=== PATIENT | female | born 1975 | race Caucasian/White ===

== ENCOUNTER → 2016-08-22 | Day surgery (SDC) | payer OTHER ==
[~2016-08-22] VITALS: Ht 162.6 cm; Wt 74.2 kg
[~2016-08-22] MED LIST: *ONDANSETRON 4 MG VIAL PERIprocedural Use ONLY ONE; *PROMETHAZINE 25 MG/ML VIAL PERIprocedural use ONLY ONE; ACETAMINOPHEN 1000 MG/100 ML VIAL IV ONE; ACETAMINOPHEN/HYDROcodone 325 MG/5 MG TAB PO PRN; AMPICILLIN/SULBAC 3 GM/NS 100 ML IV SCH; FAMOTIDINE 20 MG/2 ML VIAL ONE; INSULIN HUMAN REGULAR 1,000 UNITS/10 ML VIAL SQ PRN; LACTATED RINGER'S 1,000 ML BAG IV ONE; LACTATED RINGER'S 1000 ML INJ 1,000 ML IV SCH; LACTATED RINGER'S 1000 ML IV SCH; LIDOCAINE 1%/EPINEPHrine 1:100,000 SOLN 20 ML VIAL ONE; METOPROLOL TARTRATE 25 MG TAB PO PRN; MIDAZOLAM HCL 2 MG/2 ML VIAL ONE; ONDANSETRON HCL 4 MG/2 ML VIAL IV PUSH ONE; OXYMETAZOLINE HCL 0.05% 15 ML NASAL SPRAY ONE; PHENYLEPH/NS 1000 MCG/10 ML SYR IV ONE; PROPOFOL 200 MG/20 ML AMP IV ONE; SODIUM CHLORID 0.9% 500 ML IV SCH; fentaNYL CITRATE 250 MCG/5 ML AMP ONE
[2016-08-22 06:45] VITALS: BP 120/71; PULSE 75; RESP 20; TEMP 97.9; O2SAT 98
[2016-08-22] MEDS: BACITRACIN TOP OINT 15 GM TUBE ONE ×2 (07:47→09:40)
[2016-08-22 11:30] VITALS: BP 121/64; PULSE 68; RESP 20; TEMP 97.7; O2SAT 97
--- NOTE | 2016-08-28 10:24 | MP ---
cc: RUPINDER RAMIREZ M.D. DATE OF SURGERY: 08/22/[address] Rupinder Ramirez PREOPERATIVE DIAGNOSIS 1. Chronic pansinusitis. 2. Nasal airway obstruction. 3. Nasal septal deviation. 4. Hypertrophy of inferior turbinates. POSTOPERATIVE DIAGNOSIS 1. Chronic pansinusitis. 2. Nasal airway obstruction. 3. Nasal septal deviation. 4. Hypertrophy of inferior turbinates. OPERATION PERFORMED 1. Open repair nasal septal fracture. 2. Bilateral submucosal resection of inferior turbinates. 3. Bilateral endoscopic total ethmoidectomy. 4. Bilateral endoscopic maxillary antrostomy with removal of maxillary sinus tissue. 5. Bilateral endoscopic exploration of frontal sinus ducts with balloon sinuplasty. 6. Bilateral endoscopic sphenoidotomy with removal of sphenoid sinus tissue. INDICATIONS The indications are documented in the history and physical. OPERATIVE FINDINGS There was severe leftward deviation of septum with prominent bone spurs obstructing nasal airway and there was very marked hypertrophy of the inferior turbinates. There was bilateral polypoid tissue and mucopurulent material filling the ethmoid cavities. There was bilateral geraldo bullosa, left greater than right. DESCRIPTION OF OPERATION The patient was taken to OR #8 and placed in the supine position. Following induction of general anesthesia and intubation the nose was packed bilaterally with cotton pledgets saturated in 0.05% oxymetazoline. The nasal septum and inferior turbinates were injected with a total of 10 mL of 1% Xylocaine with epinephrine 1:100,000, and she was then prepped and draped for surgery. The packing was removed and a hemitransfixion incision was made in the left nasal vestibule. Through this incision the septal mucosa was elevated approximately 3 cm exposing very thick, twisted and irregular quadrangular cartilage with evidence of old septal fracture. A cumulative area of 2 x 2.5 cm of the quadrangular cartilage was removed preserving 1.5 cm dorsal and caudal cartilaginous struts. Next, mucosa was elevated from the bony septum and the maxillary crest and these were removed using Dior forceps and a 6 mm Harjit chisel. The incision was then closed using a running suture of 4-0 chromic and the mucosal layers of septum were approximated to each other with a quilting stitch of 4-0 plain gut. The inferior turbinates were then fractured out medially and stab incisions were opened along their inferior surfaces. Through these incisions the submucosal soft tissue of the inferior turbinate was reduced using a curet and preserving the conchal bone. The incision was then cauterized using the suction Bovie at 40 thomas and the remnants of the inferior turbinates were then re-lateralized to the lateral nasal wall. From this point on the operation was completed using endoscopic visualization. Beginning with a 0-degree scope, additional injections of lidocaine and epinephrine were made into the attachments of the middle turbinates bilaterally as well as in the uncinate processes and into the ethmoid cells. The left side was addressed first beginning with amputation of the middle turbinate using through cutting Blakesley forceps and power microdebrider. This was carried back to the posterior of the lateral nasal wall. The uncinate process was then removed using a sickle knife and the power microdebrider. Next, the ethmoid bulla was bluntly penetrated and the anterior ethmoid cells were entered. These were exenterated using blunt and power dissection of the mucopurulent material and polypoid tissue filling these cavities. This was carried back as far as the basal lamella which was then removed medially to laterally with the power debrider and the posterior cells were entered. These were also then exenterated back as far as the rostrum of the sphenoid. Material taken from the sinus cavities was included in the specimen labeled left sinus contents. When this was completed the maxillary ostium was probed using a 3 mm olive-tip suction. The ostium was then enlarged with the power debrider and Stammberger forceps. The cavity was debrided of thick mucopurulent material as well as grossly inflamed polypoid tissue which was lining the cavity swan. When this was completed the frontal duct was addressed. It was cannulated using the guidewire of the Acclarent balloon sinus dilator. When the wire was in place the balloon was advanced over the wire and was inflated to a pressure of 12 atmospheres. This was done superiorly within the frontal sinus and repeated three more times within the duct including at the junction of the duct and with the anterior ethmoid cells. The balloon was then removed and the duct was observed to be widely patent. It was debrided of some bone fragments and polypoid tissue. Lastly on the left side the sphenoid sinus ostium was probed and was enlarged using the power microdebrider. The mucosa of the posterior septum was also removed using the microdebrider. This side was then irrigated with iced saline and packed with cotton pledgets. These remained in place while the right side was operated in the same fashion. Beginning with amputation of the middle turbinate followed by uncinectomy and exenteration of the anterior and posterior ethmoids the right maxillary ostium was enlarged in the same technique as was used on the left and the cavity was debrided of its contents. The right frontal sinus duct was dilated using the balloon technique at four levels and was verified patent all the way into the frontal sinus. The maxillary ostium was enlarged using blunt dissection as well as the power microdebrider. On both sides the sphenoid ostium was greatly enlarged to allow for debridement of the sphenoid cavity of polypoid tissue and mucopurulent contents. The right side was then also irrigated with the iced saline and was packed for a period of 3 minutes using cotton pledgets saturated in oxymetazoline. The packing was removed from both sides and the sphenoid and ethmoid cavities were then filled with Stammberger sinus foam. The nose was packed bilaterally with Merocel tampons coated in bacitracin ointment and the procedure was terminated. The patient was reversed from anesthesia and taken to Recovery in good condition. There were no complications. Blood loss was 300 mL. MD LARA Maynard/BT /9:53 AM /10:08 AM
== END | disposition home or self-care (01) ==
LOC: HSDC 05:35
PROVIDERS: ATTEND Otolaryngology
DX: J32.8 Other chronic sinusitis (principal); J34.3 Hypertrophy of nasal turbinates; J34.2 Deviated nasal septum
CPT/HCPCS: 00160; 21336; 30140; 31255; 31267; 31276; 31287; 88305; 88311; J0131; J0295; J2250; J2370; J2405; J2550; J3010; J7120